=== PATIENT | male | born 1980 | race Caucasian/White ===

== ENCOUNTER 2019-01-08 08:13 | Inpatient (IN) | payer OTHER ==
[2019-01-08 08:50] VITALS: BMI 21.9
--- NOTE | 2019-01-08 09:14 | HP ---
COWS - Scale Resting Pulse: 0= [place] 80 or Below Sweatin= No chills or Flushing Restless Observation: 3= Extraneous Movement Pupil Size: 0= Normal to Room Light Bone or Joint Aches: 2= Severe Diffuse Aches Runny Nose/ Eye Tearin= Runny Nose/Eyes GI Upset > 30mins: 1= Stomach Cramp Tremor Observation: 0= None Yawning Observation: 1= 1-2x During Session Anxiety or Irritability: 2=Irritable/Anxious Goose Flesh Skin: 0=Smooth Skin COWS Score: 11 CIWA Score Nausea/Vomitin-No Nausea/No Vomiting Muscle Tremors: None Anxiety: 2 Agitation: 2 Paroxysmal Sweats: No Perspiration Orientation: 0-Oriented Tacttile Disturbances: 0-None Auditory Disturbances: 0-None Visual Disturbances: 2-Mild Sensitivity Headache: 2-Mild CIWA-Ar Total Score: 8 - Admission Criteria OASAS Guidelines: Admission for Medically Managed Detox: Requires at least one of the followin. CIWA greater than 12 2. Seizures within the past 24 hours 3. Delirium tremens within the past 24 hours 4. Hallucinations within the past 24 hours 5. Acute intervention needed for co occurring medical disorder 6. Acute intervention needed for co occurring psychiatric disorder 7. Severe withdrawal that cannot be handled at a lower level of care (continued vomiting, continued diarrhea, abnormal vital signs) requiring intravenous medication and/or fluids 8. Admitting History and Physical - Smoking History Smoking history: Current every day smoker Have you smoked in the past 12 months: Yes Aproximately how many cigarettes per day: 30 - Alcohol/Substance Use Hx Alcohol Use: No Admission ROS [facility] Allergies/Adverse Reactions: Allergies Allergy/AdvReac Type Severity Reaction Status Date / Time Fish Containing Products Allergy Unknown Hives Verified 01/08/19 08:44 [Fish Product Derivatives] No Known Drug Allergies Allergy Unknown Verified 01/08/19 08:44 History of Present Illness: 38 y.o. male here requesting detox from heroin and bezodiazepines , reports use of heroin since age 19 , current daily 10 bags/day ivdu , needles from the store, denies sharing , + re-using, denies abscess , denies OD ,has Narcan kit and knows how to use it . Latest use yesterday morning, current symptoms as above . states " I want to change my life " , detox 10-15 , most recently 6 mo ago @ [facility] , rehab - none, residential - [facility] on [facility] 2014 highest dose 90 mg . relapsed while in program and left . Longest sobriety 2 years [id number] w/ NA / AA and leaving the country , and [phone] w/ NA / AA , while in [facility] x 7 months sober . cocaine - occasional use ivdu , since age 19 benzodiazepine - since age 27 , 2 sticks of 2 mg 5-6 x/week , had w/d seizure 2 years ago illicit methadone use " recently" 30 mg fentanyl - denies knowingly using denies other illicits tobacco ; 1 ppd denies etoh Search Terms: gretta vidal, 1980 Search Date: 01/08/2019 09:05:26 AM This report was requested by: Debbie Nunez | Reference #: [id number] There are no results for the search terms that you entered pmhx : gerd pshx : denies psych : denies shx : homeless, unemployed, finances habit through odd jobs , denies legal issues , past drug-related charges . no children Exam Limitations: No Limitations - Ebola screening Have you traveled outside of the country in the last 21 days: No Have you had contact with anyone from an Ebola affected area: No Do you have a fever: No - Review of Systems Constitutional: Loss of Appetite EENT: reports: See HPI Respiratory: reports: No Symptoms reported Cardiac: reports: No Symptoms Reported GI: reports: See HPI : reports: No Symptoms Reported Musculoskeletal: reports: See HPI Integumentary: reports: See HPI Neuro: reports: See HPI, Headache Endocrine: reports: No Symptoms Reported Psychiatric: reports: Orientated x3, Agitated (denies SI / HI), Anxious Patient History - Patient Medical History Hx Anemia: No Hx Asthma: No Hx Chronic Obstructive Pulmonary Disease (COPD): No Hx Cancer: No Hx Cardiac Disorders: No Hx Congestive Heart Failure: No Hx Hypertension: No Hx Hypercholesterolemia: No Hx Pacemaker: No HX Cerebrovascular Accident: No Hx Seizures: No Hx Dementia: No Hx Diabetes: No Hx Gastrointestinal Disorders: Yes (gerd) Hx Liver Disease: No Hx Genitourinary Disorders: No Hx Sexually Transmitted Disorders: No Hx Renal Disease (ESRD): No Hx Thyroid Disease: No Hx Human Immunodeficiency Virus (HIV): No Hx Hepatitis C: Yes (since 2003) Hx Depression: Yes (anxiety) Hx Suicide Attempt: No Hx Bipolar Disorder: No Hx Schizophrenia: No - Patient Surgical History Past Surgical History: No Hx Neurologic Surgery: No Hx Cataract Extraction: No Hx Cardiac Surgery: No Hx Lung Surgery: No Hx Breast Surgery: No Hx Breast Biopsy: No Hx Abdominal Surgery: No Hx Appendectomy: No Hx Cholecystectomy: No Hx Genitourinary Surgery: No Hx Section: No Hx Orthopedic Surgery: No Anesthesia Reaction: No - PPD History Date: 09/30/14 Results: 0 mm - Smoking Cessation Smoking history: Current every day smoker Have you smoked in the past 12 months: Yes Aproximately how many cigarettes per day: 30 Cigars Per Day: 0 Hx Chewing Tobacco Use: No Initiated information on smoking cessation: No - Substances abused Alprazolam (Xanax) Substance route: Oral Frequency: 3-6 times per week Amount used: 2 sticks Age of first use: 28 Date of last use: 01/07/19 Heroin Substance route: Injection Frequency: Daily Amount used: 10 bags Age of first use: 19 Date of last use: 01/07/19 Admission Physical Exam BHS - Vital Signs Vital Signs: Vital Signs - 24 hr 01/08/19 01/08/19 08:42 09:00 Temperature 97.4 F L 97.4 F L Pulse Rate 47 L 47 L Respiratory 18 18 Rate Blood Pressure 108/73 108/73 - Physical General Appearance: Yes: Mild Distress, Anxious HEENTM: Yes: EOMI, Hearing grossly Normal, Normocephalic, Normal Voice Respiratory: Yes: Chest Non-Tender, Lungs Clear, Normal Breath Sounds, No Respiratory Distress, No Accessory Muscle Use Neck: Yes: No masses,lesions,Nodules, Trachea in good position Cardiology: Yes: Regular Rhythm, Regular Rate, S1, S2 Abdominal: Yes: Non Tender, Soft Back: Yes: Normal Inspection Musculoskeletal: Yes: full range of Motion, Gait Steady Extremities: Yes: Normal Range of Motion, Non-Tender Neurological: Yes: Alert, Motor Strength 5/5, Normal Mood/Affect Integumentary: Yes: Warm, Track Gomez (rachel antecubital) - Diagnostic (1) Opioid dependence Current Visit: Yes Status: Chronic (2) Nicotine dependence Current Visit: Yes Status: Chronic (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
[2019-01-08] MEDS ORDERED: ACETAMINOPHEN 325 MG TABLET (FP) PO PRN ×2 (09:22)
[2019-01-08] MEDS ORDERED: MENTHOL/PHENOL 1 EACH UD MM PRN (09:22)
[2019-01-08] MEDS ORDERED: IBUPROFEN 400 MG TABLET (FP) PO PRN (09:22)
[2019-01-08] MEDS ORDERED: METHOCARBAMOL 500 MG TABLET PO PRN (09:22)
[2019-01-08] MEDS ORDERED: MAGNESIUM CITRATE 300 ML BOTTLE PO PRN (09:22)
[2019-01-08] MEDS ORDERED: BISMUTH SUBSALICYLATE 524 MG/30 ML UD PO PRN (09:22)
[2019-01-08] MEDS ORDERED: MAG HYDROX/AL HYDROX/SIMETH 30 ML UNIT-DOSE CUP PO PRN (09:22)
[2019-01-08] MEDS ORDERED: MAGNESIUM HYDROX 2400MG/30ML ORAL SUSPENSION 30 ML CUP PO PRN (09:22)
[2019-01-08] MEDS ORDERED: cloNIDine HCL 0.1 MG TABLET PO PRN (09:23)
[2019-01-08] MEDS ORDERED: METHADONE HCL 10 MG TABLET (FOR DETOX USE ONLY) PO ONE (09:23)
[2019-01-08] MEDS: PANTOPRAZOLE 40 MG TABLET (FP) PO SCH (10:38)
[2019-01-08] MEDS: PRENATAL VITAMINS W/ FOLIC ACID TABLET (FP) PO SCH (10:38)
[2019-01-08] MEDS: diazePAM 5 MG TABLET PO PRN ×2 (10:40→17:08)
[2019-01-08] MEDS ORDERED: NICOTINE POLACRILEX 4 MG GUM BUC PRN (13:46)
[2019-01-08] MEDS: diazePAM 5 MG TABLET PO SCH ×2 (13:56→22:30)
[2019-01-08] MEDS: NICOTINE 21 MG/24 HOURS TOPICAL PATCH TD SCH (14:23)
[2019-01-08] MEDS: hydrOXYzine PAMOATE 25 MG CAPSULE (FP) PO PRN (15:47)
[2019-01-08] MEDS: THIAMINE HCL 100 MG TABLET (FP) PO SCH (22:30)
[2019-01-08] MEDS: MELATONIN 5 MG TABLETS PO PRN (22:30)
[2019-01-09] MEDS: diazePAM 5 MG TABLET PO SCH ×3 (05:20→22:10)
[2019-01-09] MEDS ORDERED: METHADONE HCL 10 MG TABLET (FOR DETOX USE ONLY) ONE (08:51)
[2019-01-09] MEDS ORDERED: METHADONE HCL 5 MG TABLET (FOR DETOX USE ONLY) ONE (08:51)
[2019-01-09] MEDS ORDERED: METHADONE (DETOX) 20 MG, METHADONE (DETOX) 5 MG PO ONE (10:00)
[2019-01-09] MEDS: PANTOPRAZOLE 40 MG TABLET (FP) PO SCH (10:12)
[2019-01-09] MEDS: diazePAM 5 MG TABLET PO PRN ×2 (10:13→17:48)
[2019-01-09] MEDS: NICOTINE 21 MG/24 HOURS TOPICAL PATCH TD SCH (10:13)
[2019-01-09] MEDS: PRENATAL VITAMINS W/ FOLIC ACID TABLET (FP) PO SCH (10:13)
[2019-01-09 10:14] LABS: HEMATOCRIT 38.7 % (35.4-49); HEMOGLOBIN 12.8 GM/dL (11.7-16.9); MCH 28.5 pg (25.7-33.7); MEAN CELL VOLUME 86.3 fl (80-96); MEAN PLT VOLUME 8.8 fl (7.5-11.1); PLATELET COUNT 275 K/MM3 (134-434); RBC 4.49 M/mm3 (4.00-5.60); RDW 16.8 % (11.9-15.9); WHITE BLOOD COUNT 6.5 K/mm3 (4.0-10.0)
[2019-01-09 10:28] LABS: ALBUMIN 3.5 g/dl (3.4-5.0); BILIRUBIN,TOTAL 0.5 mg/dL (0.2-1); BLOOD UREA NITROGEN 28.8 mg/dL (7-18); CALCIUM 8.9 mg/dL (8.5-10.1); CREATININE 0.9 mg/dL (0.55-1.3); POTASSIUM 4.3 mmol/L (3.5-5.1); TOT PROT 7.2 g/dl (6.4-8.2)
--- NOTE | 2019-01-09 17:37 | PN ---
S CIWA - CIWA Score Nausea/Vomitin-No Nausea/No Vomiting Muscle Tremors: 3 Anxiety: 3 Agitation: 3 Paroxysmal Sweats: No Perspiration Orientation: 0-Oriented Tacttile Disturbances: 0-None Auditory Disturbances: 0-None Visual Disturbances: 2-Mild Sensitivity Headache: 2-Mild CIWA-Ar Total Score: 13 BHS COWS - Scale Resting Pulse: 0= [place] 80 or Below Sweatin= No chills or Flushing Restless Observation: 1= Difficult to Sit Still Pupil Size: 0= Normal to Room Light Bone or Joint Aches: 2= Severe Diffuse Aches Runny Nose/ Eye Tearin= None GI Upset > 30mins: 0= None Tremor Observation of Outstretched Hands: 2= Slight Tremor Visible Yawning Observation: 1= 1-2x During Session Anxiety or Irritability: 2=Irritable/Anxious Goose Flesh Skin: 3=Piloerection COWS Score: 11 BHS Progress Note (SOAP) Subjective: Anxious, Tremors, Body Aches. Objective: PATIENT A & O X 3, OBSERVED AMBULATING ON DETOX UNIT UNASSISTED. IN NO ACUTE DISTRESS. 01/09/19 17:38 Vital Signs Temperature 96.8 F L 01/09/19 13:47 Pulse Rate 79 01/09/19 13:47 Respiratory Rate 18 01/09/19 13:47 Blood Pressure 103/67 01/09/19 13:47 O2 Sat by Pulse Oximetry (%) Laboratory Tests 01/09/19 01/09/19 01/09/19 08:00 08:00 08:00 WBC 6.5 RBC 4.49 Hgb 12.8 Hct 38.7 MCV 86.3 MCH 28.5 MCHC 33.0 RDW 16.8 H Plt Count 275 D MPV 8.8 D Sodium 140 Potassium 4.3 Chloride 104 Carbon Dioxide 31 Anion Gap 5 L BUN 28.8 H Creatinine 0.9 Est GFR (CKD-EPI)AfAm 126.90 Est GFR (CKD-EPI)NonAf 109.49 Random Glucose 99 Calcium 8.9 Total Bilirubin 0.5 AST 41 H ALT 69 H Alkaline Phosphatase 105 Total Protein 7.2 Albumin 3.5 RPR Titer Nonreactive LABS NOTED. PATIENT HAS HAD ELEVATED AST AND ALT LEVELS ON PREVIOUS ADMISSIONS 01/09/19 17:38 Assessment: 01/09/19 17:39 WITHDRAWAL SYMPTOMS. ELEVATED ALT LEVEL. ELEVATED AST LEVEL. Plan: CONTINUE DETOX. INCREASE DAILY PO WATER INTAKE.
[2019-01-09] MEDS: hydrOXYzine PAMOATE 25 MG CAPSULE (FP) PO PRN (22:10)
[2019-01-09] MEDS: THIAMINE HCL 100 MG TABLET (FP) PO SCH (22:10)
[2019-01-10] MEDS: diazePAM 5 MG TABLET PO SCH ×2 (05:59→17:44)
[2019-01-10] MEDS ORDERED: METHADONE HCL 10 MG TABLET (FOR DETOX USE ONLY) PO ONE (10:00)
[2019-01-10] MEDS: PRENATAL VITAMINS W/ FOLIC ACID TABLET (FP) PO SCH (10:35)
[2019-01-10] MEDS: PANTOPRAZOLE 40 MG TABLET (FP) PO SCH (10:35)
[2019-01-10] MEDS: NICOTINE 21 MG/24 HOURS TOPICAL PATCH TD SCH (10:35)
--- NOTE | 2019-01-10 12:36 | PN ---
S CIWA - CIWA Score Nausea/Vomitin-No Nausea/No Vomiting Muscle Tremors: 2 Anxiety: 3 Agitation: 1-Slight > Activity Paroxysmal Sweats: 3 Orientation: 0-Oriented Tacttile Disturbances: 0-None Auditory Disturbances: 0-None Visual Disturbances: 0-None Headache: 1-Very Mild CIWA-Ar Total Score: 10 S COWS - Scale Resting Pulse: 0= [place] 80 or Below Sweatin= Beads of Sweat on Face Restless Observation: 1= Difficult to Sit Still Pupil Size: 0= Normal to Room Light Bone or Joint Aches: 0= None Runny Nose/ Eye Tearin= None GI Upset > 30mins: 0= None Tremor Observation of Outstretched Hands: 2= Slight Tremor Visible Yawning Observation: 1= 1-2x During Session Anxiety or Irritability: 2=Irritable/Anxious Goose Flesh Skin: 0=Smooth Skin COWS Score: 9 S Progress Note (SOAP) Subjective: c/o sweats, anxiety, headache, irritability, and shakes. Objective: 01/10/19 12:37 Vital Signs 01/10/19 01/10/19 07:00 09:30 Temperature 96.8 F L 97.0 F L Pulse Rate 63 77 Respiratory 18 16 Rate Blood Pressure 100/61 96/61 Lab Results WBC 6.5 K/mm3 (4.0-10.0) 01/09/19 08:00 RBC 4.49 M/mm3 (4.00-5.60) 01/09/19 08:00 Hgb 12.8 GM/dL (11.7-16.9) 01/09/19 08:00 Hct 38.7 % (35.4-49) 01/09/19 08:00 MCV 86.3 fl (80-96) 01/09/19 08:00 MCHC 33.0 g/dl (32.0-35.9) 01/09/19 08:00 RDW 16.8 % (11.9-15.9) H 01/09/19 08:00 Plt Count 275 K/MM3 (134-434) D 01/09/19 08:00 Sodium 140 mmol/L (136-145) 01/09/19 08:00 Potassium 4.3 mmol/L (3.5-5.1) 01/09/19 08:00 Chloride 104 mmol/L (98-107) 01/09/19 08:00 Carbon Dioxide 31 mmol/L (21-32) 01/09/19 08:00 Anion Gap 5 MMOL/L (8-16) L 01/09/19 08:00 BUN 28.8 mg/dL (7-18) H 01/09/19 08:00 Creatinine 0.9 mg/dL (0.55-1.3) 01/09/19 08:00 Random Glucose 99 mg/dL (74-106) 01/09/19 08:00 Calcium 8.9 mg/dL (8.5-10.1) 01/09/19 08:00 Labs noted. Assessment: 01/10/19 12:37 AOX3, in no acute respiratory distress. Full ROM, ambulating in the unit. Withdrawal symptoms. Plan: continue detox.
[2019-01-10] MEDS: diazePAM 5 MG TABLET PO PRN (21:44)
[2019-01-10] MEDS: THIAMINE HCL 100 MG TABLET (FP) PO SCH (21:45)
[2019-01-11] MEDS ORDERED: diazePAM 5 MG TABLET PO ONE (06:00)
[2019-01-11] MEDS: diazePAM 5 MG TABLET PO PRN (07:02)
[2019-01-11] MEDS ORDERED: METHADONE HCL 10 MG TABLET (FOR DETOX USE ONLY) ONE (09:35)
[2019-01-11] MEDS ORDERED: METHADONE HCL 5 MG TABLET (FOR DETOX USE ONLY) ONE (09:35)
[2019-01-11] MEDS ORDERED: METHADONE (DETOX) 10 MG, METHADONE (DETOX) 5 MG PO ONE (10:00)
[2019-01-11] MEDS: PRENATAL VITAMINS W/ FOLIC ACID TABLET (FP) PO SCH (10:20)
[2019-01-11] MEDS: PANTOPRAZOLE 40 MG TABLET (FP) PO SCH (10:20)
[2019-01-11] MEDS: NICOTINE 21 MG/24 HOURS TOPICAL PATCH TD SCH (10:21)
--- NOTE | 2019-01-11 11:14 | PN ---
[facility] CIWA - CIWA Score Nausea/Vomitin-No Nausea/No Vomiting Muscle Tremors: None Anxiety: 3 Agitation: 1-Slight > Activity Paroxysmal Sweats: 3 Orientation: 0-Oriented Tacttile Disturbances: 0-None Auditory Disturbances: 0-None Visual Disturbances: 0-None Headache: 1-Very Mild CIWA-Ar Total Score: 8 BHS COWS - Scale Resting Pulse: 0= [place] 80 or Below Sweatin= Chills/Flushing Restless Observation: 1= Difficult to Sit Still Pupil Size: 0= Normal to Room Light Bone or Joint Aches: 2= Severe Diffuse Aches Runny Nose/ Eye Tearin= None GI Upset > 30mins: 0= None Tremor Observation of Outstretched Hands: 0= None Yawning Observation: 1= 1-2x During Session Anxiety or Irritability: 2=Irritable/Anxious Goose Flesh Skin: 0=Smooth Skin COWS Score: 7 S Progress Note (SOAP) Subjective: c/o anxiety, irritability, muscle aches, and sweats. Objective: 01/11/19 11:13 Vital Signs 01/11/19 01/11/19 01/11/19 03:30 06:32 09:48 Temperature 96.9 F L 97.6 F Pulse Rate 60 69 Respiratory 18 18 16 Rate Blood Pressure 97/59 L 102/63 Lab Results WBC 6.5 K/mm3 (4.0-10.0) 01/09/19 08:00 RBC 4.49 M/mm3 (4.00-5.60) 01/09/19 08:00 Hgb 12.8 GM/dL (11.7-16.9) 01/09/19 08:00 Hct 38.7 % (35.4-49) 01/09/19 08:00 MCV 86.3 fl (80-96) 01/09/19 08:00 MCHC 33.0 g/dl (32.0-35.9) 01/09/19 08:00 RDW 16.8 % (11.9-15.9) H 01/09/19 08:00 Plt Count 275 K/MM3 (134-434) D 01/09/19 08:00 Sodium 140 mmol/L (136-145) 01/09/19 08:00 Potassium 4.3 mmol/L (3.5-5.1) 01/09/19 08:00 Chloride 104 mmol/L (98-107) 01/09/19 08:00 Carbon Dioxide 31 mmol/L (21-32) 01/09/19 08:00 Anion Gap 5 MMOL/L (8-16) L 01/09/19 08:00 BUN 28.8 mg/dL (7-18) H 01/09/19 08:00 Creatinine 0.9 mg/dL (0.55-1.3) 01/09/19 08:00 Random Glucose 99 mg/dL (74-106) 01/09/19 08:00 Calcium 8.9 mg/dL (8.5-10.1) 01/09/19 08:00 Labs noted. Assessment: 01/11/19 11:14 AOX3, in no respiratory distress. Full ROM, ambulating in the unit. Withdrawal symptoms. Plan: continue detox.
[2019-01-11] MEDS: THIAMINE HCL 100 MG TABLET (FP) PO SCH (21:46)
[2019-01-11] MEDS: MELATONIN 5 MG TABLETS PO PRN (21:47)
[2019-01-12] MEDS ORDERED: METHADONE HCL 10 MG TABLET (FOR DETOX USE ONLY) PO ONE (10:00)
[2019-01-12] MEDS: NICOTINE 21 MG/24 HOURS TOPICAL PATCH TD SCH (10:15)
[2019-01-12] MEDS: PRENATAL VITAMINS W/ FOLIC ACID TABLET (FP) PO SCH (10:15)
[2019-01-12] MEDS: PANTOPRAZOLE 40 MG TABLET (FP) PO SCH (10:15)
--- NOTE | 2019-01-12 18:54 | PN ---
[facility] CIWA - CIWA Score Nausea/Vomitin-No Nausea/No Vomiting Muscle Tremors: None Anxiety: 2 Agitation: 0-Normal Activity Paroxysmal Sweats: No Perspiration Orientation: 0-Oriented Tacttile Disturbances: 0-None Auditory Disturbances: 0-None Visual Disturbances: 2-Mild Sensitivity Headache: 0-None Present CIWA-Ar Total Score: 4 S COWS - Scale Resting Pulse: 0= [place] 80 or Below Sweatin= No chills or Flushing Restless Observation: 0= Sits Still Pupil Size: 0= Normal to Room Light Bone or Joint Aches: 0= None Runny Nose/ Eye Tearin= None GI Upset > 30mins: 0= None Tremor Observation of Outstretched Hands: 0= None Yawning Observation: 1= 1-2x During Session Anxiety or Irritability: 2=Irritable/Anxious Goose Flesh Skin: 0=Smooth Skin COWS Score: 3 S Progress Note (SOAP) Subjective: Fatigue, Anxious. Objective: PATIENT A & O X 3. IN NO ACUTE DISTRESS. 01/12/19 18:51 Vital Signs Temperature 98.8 F 01/12/19 17:08 Pulse Rate 77 01/12/19 17:08 Respiratory Rate 19 01/12/19 17:08 Blood Pressure 97/58 L 01/12/19 17:08 O2 Sat by Pulse Oximetry (%) Laboratory Tests 01/09/19 01/09/19 01/09/19 08:00 08:00 08:00 WBC 6.5 RBC 4.49 Hgb 12.8 Hct 38.7 MCV 86.3 MCH 28.5 MCHC 33.0 RDW 16.8 H Plt Count 275 D MPV 8.8 D Sodium 140 Potassium 4.3 Chloride 104 Carbon Dioxide 31 Anion Gap 5 L BUN 28.8 H Creatinine 0.9 Est GFR (CKD-EPI)AfAm 126.90 Est GFR (CKD-EPI)NonAf 109.49 Random Glucose 99 Calcium 8.9 Total Bilirubin 0.5 AST 41 H ALT 69 H Alkaline Phosphatase 105 Total Protein 7.2 Albumin 3.5 RPR Titer Nonreactive LABS NOTED. Assessment: 01/12/19 18:52 WITHDRAWAL SYMPTOMS. ELEVATED AST LEVEL. ELEVATED ALT LEVEL. AZOTEMIA. 01/12/19 18:52 Plan: CONTINUE DETOX. PATIENT SCHEDULED FOR DISCHARGE FROM DETOX UNIT TOMORROW.
[2019-01-12] MEDS: THIAMINE HCL 100 MG TABLET (FP) PO SCH (22:02)
[2019-01-12] MEDS: MELATONIN 5 MG TABLETS PO PRN (22:02)
[2019-01-13] MEDS ORDERED: METHADONE HCL 5 MG TABLET (FOR DETOX USE ONLY) PO ONE (06:00)
--- NOTE | 2019-01-13 09:06 | DS ---
[facility] Detox Discharge Summary Admission Date: 01/08/19 Discharge Date: 01/13/19 - History Present History: Opioid Dependence, Sedative Dependence - Physical Exam Results Vital Signs: Vital Signs Temperature 96.9 F L 01/13/19 06:15 Pulse Rate 58 L 01/13/19 06:15 Respiratory Rate 16 01/13/19 06:15 Blood Pressure 103/70 01/13/19 06:15 O2 Sat by Pulse Oximetry (%) - Treatment Hospital Course: Detox Protocol Followed, Detoxed Safely, Responded well, Discharged Condition Good, Rehab Referral Accepted Patient has Accepted a Rehab Referral to: [facility] - Medication Discharge Medications: Ambulatory Orders Lansoprazole [Prevacid] 30 mg PO DAILY 09/15/13 - Diagnosis (1) Nicotine dependence Current Visit: Yes Status: Chronic (2) Opioid dependence Current Visit: Yes Status: Chronic (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
[2019-01-13 09:17] VITALS: BP 111/79; PULSE 70; TEMP 97.3
== END 2019-01-13 09:45 | disposition other institution (70) | DRG 773 ==
LOC: YASAS 08:13 → Y3N 09:31
PROVIDERS: ADMIT Allergy & Immunology; ATTEND Allergy & Immunology
PROC: HZ2ZZZZ Detoxification Services for Substance Abuse Treatment (ICD-10-PCS; principal; 2019-01-08)
DX: F11.23 Opioid dependence with withdrawal (principal); F13.230 Sedative, hypnotic or anxiolytic dependence with withdrawal, uncomplicated; F14.20 Cocaine dependence, uncomplicated; F17.210 Nicotine dependence, cigarettes, uncomplicated; F41.8 Other specified anxiety disorders; F32.9 Major depressive disorder, single episode, unspecified; K21.9 Gastro-esophageal reflux disease without esophagitis; B18.2 Chronic viral hepatitis C; R94.5 Abnormal results of liver function studies; Z91.013 Allergy to seafood; Z59.0 Homelessness
CPT/HCPCS: 36415; 80053; 85027; 86593

== ENCOUNTER 2019-02-18 13:04 | Inpatient (IN) | payer OTHER ==
[2019-02-18 13:58] VITALS: BMI 22.7
--- NOTE | 2019-02-18 15:12 | HP ---
COWS - Scale Resting Pulse: 2= [place] 101-120 Sweatin= Chills/Flushing Restless Observation: 3= Extraneous Movement Pupil Size: 1= Pupils >than Normal Bone or Joint Aches: 2= Severe Diffuse Aches Runny Nose/ Eye Tearin= Runny Nose/Eyes GI Upset > 30mins: 2= Nausea/Diarrhea Tremor Observation: 1= Tremor [place], Not Seen Yawning Observation: 1= 1-2x During Session Anxiety or Irritability: 1=Feels Anxious/Irritable Goose Flesh Skin: 0=Smooth Skin COWS Score: 16 CIWA Score - Admission Criteria OASAS Guidelines: Admission for Medically Managed Detox: Requires at least one of the followin. CIWA greater than 12 2. Seizures within the past 24 hours 3. Delirium tremens within the past 24 hours 4. Hallucinations within the past 24 hours 5. Acute intervention needed for co occurring medical disorder 6. Acute intervention needed for co occurring psychiatric disorder 7. Severe withdrawal that cannot be handled at a lower level of care (continued vomiting, continued diarrhea, abnormal vital signs) requiring intravenous medication and/or fluids 8. Admitting History and Physical - Smoking History Smoking history: Current every day smoker Have you smoked in the past 12 months: Yes Aproximately how many cigarettes per day: 30 - Alcohol/Substance Use Hx Alcohol Use: No Admission ROS [facility] - HPI Chief Complaint: heroin detox Allergies/Adverse Reactions: Allergies Allergy/AdvReac Type Severity Reaction Status Date / Time Fish Containing Products Allergy Unknown Hives Verified 02/18/19 13:53 [Fish Product Derivatives] No Known Drug Allergies Allergy Unknown Verified 02/18/19 13:53 History of Present Illness: 38 yo with HCV pos, long h/o OUD, was last here about a month ago, 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 Homeless. Family is in [place]. Would like to go to half-way rehab. Has no PCP- has not had care for HCV. Was in a methadone program stopped going about 5 years. Did not want to stay on Methadone assisted. heroin: IV, 1-2 bundles/day, no h/o overdose, has a Narcan kit- [id number] a week Utox: Fen, MTD, Bar, BZO DUR- no controlled substances - Ebola screening Have you traveled outside of the country in the last 21 days: No Have you had contact with anyone from an Ebola affected area: No Do you have a fever: No - Review of Systems Constitutional: No Symptoms Reported EENT: reports: No Symptoms Reported Respiratory: reports: No Symptoms reported Cardiac: reports: No Symptoms Reported GI: reports: No Symptoms Reported : reports: No Symptoms Reported Musculoskeletal: reports: No Symptoms Reported Integumentary: reports: No Symptoms Reported Neuro: reports: No Symptoms reported Endocrine: reports: No Symptoms Reported Hematology: reports: No Symptoms Reported Psychiatric: reports: No Sypmtoms Reported Other Systems: Reviewed and Negative Patient History - Patient Medical History Hx Anemia: No Hx Asthma: No Hx Chronic Obstructive Pulmonary Disease (COPD): No Hx Cancer: No Hx Cardiac Disorders: No Hx Congestive Heart Failure: No Hx Hypertension: No Hx Hypercholesterolemia: No Hx Pacemaker: No HX Cerebrovascular Accident: No Hx Seizures: No Hx Dementia: No Hx Diabetes: No Hx Gastrointestinal Disorders: Yes (gerd) Hx Liver Disease: No Hx Genitourinary Disorders: No Hx Sexually Transmitted Disorders: No Hx Renal Disease (ESRD): No Hx Thyroid Disease: No Hx Human Immunodeficiency Virus (HIV): No Hx Hepatitis C: Yes (since 2003) Hx Depression: Yes (anxiety) Hx Suicide Attempt: No Hx Bipolar Disorder: No Hx Schizophrenia: No - Patient Surgical History Past Surgical History: No Hx Neurologic Surgery: No Hx Cataract Extraction: No Hx Cardiac Surgery: No Hx Lung Surgery: No Hx Breast Surgery: No Hx Breast Biopsy: No Hx Abdominal Surgery: No Hx Appendectomy: No Hx Cholecystectomy: No Hx Genitourinary Surgery: No Hx Section: No Hx Orthopedic Surgery: No Anesthesia Reaction: No - PPD History Date: 09/30/14 Results: 0 mm - Smoking Cessation Smoking history: Current every day smoker Have you smoked in the past 12 months: Yes Aproximately how many cigarettes per day: 30 Cigars Per Day: 0 Hx Chewing Tobacco Use: No Initiated information on smoking cessation: Yes 'Breaking Loose' booklet given: 02/18/19 - Substance & Tx. History Hx Alcohol Use: Yes Hx Substance Use: Yes Substance Use Type: Heroin, Tranquilizers Hx Substance Use Treatment: Yes - Substances abused Alprazolam (Xanax) Substance route: Oral Frequency: 3-6 times per week Amount used: 2 sticks Age of first use: 28 Date of last use: 01/07/19 Heroin Substance route: Injection Frequency: Daily Amount used: 10-15bags Age of first use: 19 Date of last use: 02/17/19 Alcohol Substance route: Oral Frequency: Daily Amount used: 2 PINTS OF VODKA Age of first use: 13 Date of last use: 02/17/19 Admission Physical Exam BHS - Vital Signs Vital Signs: Vital Signs - 24 hr 02/18/19 13:55 Temperature 97.7 F Pulse Rate 73 Respiratory 16 Rate Blood Pressure 124/64 - Physical General Appearance: Yes: Within Normal Limits HEENTM: Yes: Within Normal Limits Respiratory: Yes: Within Normal Limits, Lungs Clear Neck: Yes: Within Normal Limits Cardiology: Yes: Within Normal Limits, Regular Rhythm Abdominal: Yes: Within Normal Limits Back: Yes: Within Normal Limits Musculoskeletal: Yes: Within Normal Limits Extremities: Yes: Within Normal Limits Neurological: Yes: Within Normal Limits Integumentary: Yes: Within Normal Limits, Track Gomez Lymphatic: Yes: Within Normal Limits - Diagnostic (1) Opioid use disorder Current Visit: Yes Status: Acute Breathalyzer - Breathalyzer Breathalyzer: 0 Urine Drug Screen - Test Device Lot number: [id number] Expiration date: 10/29/20 - Control Is test valid?: Yes - Results Drug screen NEGATIVE: No Urine drug screen results: FEN-Fentanyl, MTD-Methadone, BAR-Barbiturates, BZO- Benzodiazepines Inpatient Rehab Admission - Rehab Decision to Admit Inpatient rehab admission?: No
[2019-02-18] MEDS ORDERED: ACETAMINOPHEN 325 MG TABLET (FP) PO PRN ×2 (15:18)
[2019-02-18] MEDS ORDERED: MAGNESIUM HYDROX 2400MG/30ML ORAL SUSPENSION 30 ML CUP PO PRN (15:18)
[2019-02-18] MEDS ORDERED: NICOTINE POLACRILEX 2 MG GUM BUC PRN (15:18)
[2019-02-18] MEDS ORDERED: BISMUTH SUBSALICYLATE 524 MG/30 ML UD PO PRN (15:18)
[2019-02-18] MEDS ORDERED: MAGNESIUM CITRATE 300 ML BOTTLE PO PRN (15:18)
[2019-02-18] MEDS ORDERED: NALOXONE HCL 0.4 MG/ML VIAL IM PRN (15:18)
[2019-02-18] MEDS ORDERED: METHADONE HCL 10 MG TABLET (FOR DETOX USE ONLY) PO ONE (15:18)
[2019-02-18] MEDS ORDERED: cloNIDine HCL 0.1 MG TABLET PO PRN (15:18)
[2019-02-18] MEDS ORDERED: MAG HYDROX/AL HYDROX/SIMETH 30 ML UNIT-DOSE CUP PO PRN (15:18)
[2019-02-18] MEDS ORDERED: MENTHOL/PHENOL 1 EACH UD MM PRN (15:18)
[2019-02-18] MEDS ORDERED: IBUPROFEN 400 MG TABLET (FP) PO PRN (15:18)
[2019-02-18] MEDS: clonazePAM 0.5 MG TABLET PO PRN ×2 (17:48→23:06)
[2019-02-18] MEDS: METHOCARBAMOL 500 MG TABLET PO PRN (19:34)
[2019-02-18] MEDS: hydrOXYzine PAMOATE 25 MG CAPSULE (FP) PO PRN (19:34)
[2019-02-18] MEDS: traZODone HCL 50 MG TABLET (FP) PO SCH (22:04)
[2019-02-18] MEDS: THIAMINE HCL 100 MG TABLET (FP) PO SCH (22:04)
[2019-02-18] MEDS: MELATONIN 5 MG TABLETS PO PRN (22:04)
[2019-02-19 09:37] LABS: HEMATOCRIT 37.7 % (35.4-49); HEMOGLOBIN 12.4 GM/dL (11.7-16.9); MCH 28.8 pg (25.7-33.7); MCHC 32.9 g/dl (32.0-35.9); MEAN CELL VOLUME 87.6 fl (80-96); MEAN PLT VOLUME 8.7 fl (7.5-11.1); PLATELET COUNT 274 K/MM3 (134-434); RBC 4.31 M/mm3 (4.00-5.60); RDW 16.1 % (11.9-15.9); WHITE BLOOD COUNT 9.1 K/mm3 (4.0-10.0)
[2019-02-19] MEDS ORDERED: METHADONE HCL 10 MG TABLET (FOR DETOX USE ONLY) ONE (09:42)
[2019-02-19] MEDS ORDERED: METHADONE HCL 5 MG TABLET (FOR DETOX USE ONLY) ONE (09:42)
[2019-02-19 09:50] LABS: ALBUMIN 3.1 g/dl (3.4-5.0); BILIRUBIN,TOTAL 0.4 mg/dL (0.2-1); BLOOD UREA NITROGEN 25.6 mg/dL (7-18); CALCIUM 8.4 mg/dL (8.5-10.1); CREATININE 0.8 mg/dL (0.55-1.3); TOT PROT 6.8 g/dl (6.4-8.2)
[2019-02-19] MEDS ORDERED: METHADONE (DETOX) 20 MG, METHADONE (DETOX) 5 MG PO ONE (10:00)
[2019-02-19] MEDS: clonazePAM 0.5 MG TABLET PO PRN ×2 (10:42→18:20)
[2019-02-19] MEDS: NICOTINE 21 MG/24 HOURS TOPICAL PATCH TD SCH (10:42)
[2019-02-19] MEDS: PRENATAL VITAMINS W/ FOLIC ACID TABLET (FP) PO SCH (10:42)
--- NOTE | 2019-02-19 14:12 | PN ---
BHS COWS - Scale Resting Pulse: 0= [place] 80 or Below Sweatin= Chills/Flushing Restless Observation: 0= Sits Still Pupil Size: 1= Pupils >than Normal Bone or Joint Aches: 1= Mild Discomfort Runny Nose/ Eye Tearin= Nasal Congestion GI Upset > 30mins: 1= Stomach Cramp Tremor Observation of Outstretched Hands: 2= Slight Tremor Visible Yawning Observation: 1= 1-2x During Session Anxiety or Irritability: 2=Irritable/Anxious Goose Flesh Skin: 3=Piloerection COWS Score: 13 BHS Progress Note (SOAP) Subjective: 38 years old male admitted on 02/18/19 for opiate withdrawal sx management treated with methadone detox regimen ate breakfast feeling tired prefers to stay in bed today limited conversation with staff Objective: 02/19/19 14:14 Vital Signs Temperature 96.7 F L 02/19/19 13:12 Pulse Rate 77 02/19/19 13:12 Respiratory Rate 18 02/19/19 13:12 Blood Pressure 99/63 02/19/19 13:12 O2 Sat by Pulse Oximetry (%) Laboratory Last Values WBC 9.1 K/mm3 (4.0-10.0) 02/19/19 08:00 RBC 4.31 M/mm3 (4.00-5.60) 02/19/19 08:00 Hgb 12.4 GM/dL (11.7-16.9) 02/19/19 08:00 Hct 37.7 % (35.4-49) 02/19/19 08:00 MCV 87.6 fl (80-96) 02/19/19 08:00 MCH 28.8 pg (25.7-33.7) 02/19/19 08:00 MCHC 32.9 g/dl (32.0-35.9) 02/19/19 08:00 RDW 16.1 % (11.9-15.9) H 02/19/19 08:00 Plt Count 274 K/MM3 (134-434) 02/19/19 08:00 MPV 8.7 fl (7.5-11.1) 02/19/19 08:00 Sodium 137 mmol/L (136-145) 02/19/19 08:00 Potassium 4.0 mmol/L (3.5-5.1) 02/19/19 08:00 Chloride 100 mmol/L (98-107) 02/19/19 08:00 Carbon Dioxide 32 mmol/L (21-32) 02/19/19 08:00 Anion Gap 5 MMOL/L (8-16) L 02/19/19 08:00 BUN 25.6 mg/dL (7-18) H 02/19/19 08:00 Creatinine 0.8 mg/dL (0.55-1.3) 02/19/19 08:00 Est GFR (CKD-EPI)AfAm 133.20 02/19/19 08:00 Est GFR (CKD-EPI)NonAf 114.93 02/19/19 08:00 Random Glucose 84 mg/dL (74-106) 02/19/19 08:00 Calcium 8.4 mg/dL (8.5-10.1) L 02/19/19 08:00 Total Bilirubin 0.4 mg/dL (0.2-1) 02/19/19 08:00 AST 45 U/L (15-37) H 02/19/19 08:00 ALT 72 U/L (13-61) H 02/19/19 08:00 Alkaline Phosphatase 94 U/L (45-117) 02/19/19 08:00 Total Protein 6.8 g/dl (6.4-8.2) 02/19/19 08:00 Albumin 3.1 g/dl (3.4-5.0) L 02/19/19 08:00 RPR Titer Nonreactive (NONREACTIVE) 02/19/19 08:00 lab noted Assessment: 02/19/19 14:15 opiate withdrawal sx Plan: continue methadone detox regimen
[2019-02-19] MEDS: traZODone HCL 50 MG TABLET (FP) PO SCH (22:13)
[2019-02-19] MEDS: MELATONIN 5 MG TABLETS PO PRN (22:13)
[2019-02-19] MEDS: THIAMINE HCL 100 MG TABLET (FP) PO SCH (22:13)
[2019-02-20] MEDS ORDERED: METHADONE HCL 10 MG TABLET (FOR DETOX USE ONLY) PO ONE (10:00)
[2019-02-20] MEDS: NICOTINE 21 MG/24 HOURS TOPICAL PATCH TD SCH (10:24)
[2019-02-20] MEDS: PRENATAL VITAMINS W/ FOLIC ACID TABLET (FP) PO SCH (10:24)
[2019-02-20] MEDS: clonazePAM 0.5 MG TABLET PO PRN ×3 (10:27→21:46)
--- NOTE | 2019-02-20 14:00 | PN ---
S COWS - Scale Resting Pulse: 0= [place] 80 or Below Sweatin= No chills or Flushing Restless Observation: 1= Difficult to Sit Still Pupil Size: 1= Pupils >than Normal Bone or Joint Aches: 1= Mild Discomfort Runny Nose/ Eye Tearin= Nasal Congestion GI Upset > 30mins: 1= Stomach Cramp Tremor Observation of Outstretched Hands: 1= Tremor [place], Not Seen Yawning Observation: 1= 1-2x During Session Anxiety or Irritability: 2=Irritable/Anxious Goose Flesh Skin: 0=Smooth Skin COWS Score: 9 S Progress Note (SOAP) Subjective: alert,irritable,anxious,pain in the body and back Objective: 02/20/19 13:59 Vital Signs Temperature 97.2 F L 02/20/19 13:36 Pulse Rate 70 02/20/19 13:36 Respiratory Rate 18 02/20/19 13:36 Blood Pressure 102/67 02/20/19 13:36 O2 Sat by Pulse Oximetry (%) 02/20/19 13:59 Laboratory Last Values WBC 9.1 K/mm3 (4.0-10.0) 02/19/19 08:00 RBC 4.31 M/mm3 (4.00-5.60) 02/19/19 08:00 Hgb 12.4 GM/dL (11.7-16.9) 02/19/19 08:00 Hct 37.7 % (35.4-49) 02/19/19 08:00 MCV 87.6 fl (80-96) 02/19/19 08:00 MCH 28.8 pg (25.7-33.7) 02/19/19 08:00 MCHC 32.9 g/dl (32.0-35.9) 02/19/19 08:00 RDW 16.1 % (11.9-15.9) H 02/19/19 08:00 Plt Count 274 K/MM3 (134-434) 02/19/19 08:00 MPV 8.7 fl (7.5-11.1) 02/19/19 08:00 Sodium 137 mmol/L (136-145) 02/19/19 08:00 Potassium 4.0 mmol/L (3.5-5.1) 02/19/19 08:00 Chloride 100 mmol/L (98-107) 02/19/19 08:00 Carbon Dioxide 32 mmol/L (21-32) 02/19/19 08:00 Anion Gap 5 MMOL/L (8-16) L 02/19/19 08:00 BUN 25.6 mg/dL (7-18) H 02/19/19 08:00 Creatinine 0.8 mg/dL (0.55-1.3) 02/19/19 08:00 Est GFR (CKD-EPI)AfAm 133.20 02/19/19 08:00 Est GFR (CKD-EPI)NonAf 114.93 02/19/19 08:00 Random Glucose 84 mg/dL (74-106) 02/19/19 08:00 Calcium 8.4 mg/dL (8.5-10.1) L 02/19/19 08:00 Total Bilirubin 0.4 mg/dL (0.2-1) 02/19/19 08:00 AST 45 U/L (15-37) H 02/19/19 08:00 ALT 72 U/L (13-61) H 02/19/19 08:00 Alkaline Phosphatase 94 U/L (45-117) 02/19/19 08:00 Total Protein 6.8 g/dl (6.4-8.2) 02/19/19 08:00 Albumin 3.1 g/dl (3.4-5.0) L 02/19/19 08:00 RPR Titer Nonreactive (NONREACTIVE) 02/19/19 08:00 Assessment: 02/20/19 13:59 withdrawal symptom Plan: continue detox,methadone regimen
[2019-02-20] MEDS: traZODone HCL 50 MG TABLET (FP) PO SCH (21:46)
[2019-02-20] MEDS: THIAMINE HCL 100 MG TABLET (FP) PO SCH (21:46)
[2019-02-21] MEDS ORDERED: METHADONE HCL 5 MG TABLET (FOR DETOX USE ONLY) ONE (09:46)
[2019-02-21] MEDS ORDERED: METHADONE HCL 10 MG TABLET (FOR DETOX USE ONLY) ONE (09:46)
[2019-02-21] MEDS ORDERED: METHADONE (DETOX) 10 MG, METHADONE (DETOX) 5 MG PO ONE (10:00)
[2019-02-21] MEDS: PRENATAL VITAMINS W/ FOLIC ACID TABLET (FP) PO SCH (11:05)
[2019-02-21] MEDS: clonazePAM 0.5 MG TABLET PO PRN ×3 (11:06→22:00)
[2019-02-21] MEDS: NICOTINE 21 MG/24 HOURS TOPICAL PATCH TD SCH (11:08)
--- NOTE | 2019-02-21 11:38 | PN ---
S COWS - Scale Resting Pulse: 0= [place] 80 or Below Sweatin= Beads of Sweat on Face Restless Observation: 1= Difficult to Sit Still Pupil Size: 0= Normal to Room Light Bone or Joint Aches: 2= Severe Diffuse Aches Runny Nose/ Eye Tearin= None GI Upset > 30mins: 0= None Tremor Observation of Outstretched Hands: 0= None Yawning Observation: 1= 1-2x During Session Anxiety or Irritability: 2=Irritable/Anxious Goose Flesh Skin: 0=Smooth Skin COWS Score: 9 S Progress Note (SOAP) Subjective: c/o sweats, headache, muscle aches, anxiety, and tiredness. Objective: 02/21/19 11:37 Vital Signs 02/21/19 02/21/19 06:35 09:17 Temperature 97.5 F L 96.7 F L Pulse Rate 58 L 67 Respiratory 16 18 Rate Blood Pressure 100/60 108/76 Laboratory Last Values WBC 9.1 K/mm3 (4.0-10.0) 02/19/19 08:00 RBC 4.31 M/mm3 (4.00-5.60) 02/19/19 08:00 Hgb 12.4 GM/dL (11.7-16.9) 02/19/19 08:00 Hct 37.7 % (35.4-49) 02/19/19 08:00 MCV 87.6 fl (80-96) 02/19/19 08:00 MCH 28.8 pg (25.7-33.7) 02/19/19 08:00 MCHC 32.9 g/dl (32.0-35.9) 02/19/19 08:00 RDW 16.1 % (11.9-15.9) H 02/19/19 08:00 Plt Count 274 K/MM3 (134-434) 02/19/19 08:00 MPV 8.7 fl (7.5-11.1) 02/19/19 08:00 Sodium 137 mmol/L (136-145) 02/19/19 08:00 Potassium 4.0 mmol/L (3.5-5.1) 02/19/19 08:00 Chloride 100 mmol/L (98-107) 02/19/19 08:00 Carbon Dioxide 32 mmol/L (21-32) 02/19/19 08:00 Anion Gap 5 MMOL/L (8-16) L 02/19/19 08:00 BUN 25.6 mg/dL (7-18) H 02/19/19 08:00 Creatinine 0.8 mg/dL (0.55-1.3) 02/19/19 08:00 Est GFR (CKD-EPI)AfAm 133.20 02/19/19 08:00 Est GFR (CKD-EPI)NonAf 114.93 02/19/19 08:00 Random Glucose 84 mg/dL (74-106) 02/19/19 08:00 Calcium 8.4 mg/dL (8.5-10.1) L 02/19/19 08:00 Total Bilirubin 0.4 mg/dL (0.2-1) 02/19/19 08:00 AST 45 U/L (15-37) H 02/19/19 08:00 ALT 72 U/L (13-61) H 02/19/19 08:00 Alkaline Phosphatase 94 U/L (45-117) 02/19/19 08:00 Total Protein 6.8 g/dl (6.4-8.2) 02/19/19 08:00 Albumin 3.1 g/dl (3.4-5.0) L 02/19/19 08:00 RPR Titer Nonreactive (NONREACTIVE) 02/19/19 08:00 Labs noted. Assessment: 02/21/19 11:38 AOX3, in no acute respiratory distress. Full ROM, ambulating in the unit. Withdrawal symptoms. Plan: continue detox.
[2019-02-21] MEDS: METHOCARBAMOL 500 MG TABLET PO PRN (15:41)
[2019-02-21] MEDS: hydrOXYzine PAMOATE 25 MG CAPSULE (FP) PO PRN ×2 (17:14→21:59)
[2019-02-21] MEDS: traZODone HCL 50 MG TABLET (FP) PO SCH (21:59)
[2019-02-21] MEDS: THIAMINE HCL 100 MG TABLET (FP) PO SCH (21:59)
[2019-02-21] MEDS: MELATONIN 5 MG TABLETS PO PRN (22:01)
[2019-02-22] MEDS ORDERED: METHADONE HCL 10 MG TABLET (FOR DETOX USE ONLY) PO ONE (10:00)
[2019-02-22] MEDS: PRENATAL VITAMINS W/ FOLIC ACID TABLET (FP) PO SCH (10:32)
[2019-02-22] MEDS: NICOTINE 21 MG/24 HOURS TOPICAL PATCH TD SCH (10:32)
[2019-02-22] MEDS: METHOCARBAMOL 500 MG TABLET PO PRN (10:34)
[2019-02-22] MEDS: clonazePAM 0.5 MG TABLET PO PRN ×3 (10:34→21:54)
--- NOTE | 2019-02-22 13:20 | PN ---
[facility] COWS - Scale Resting Pulse: 0= [place] 80 or Below Sweatin= Chills/Flushing Restless Observation: 0= Sits Still Pupil Size: 0= Normal to Room Light Bone or Joint Aches: 1= Mild Discomfort Runny Nose/ Eye Tearin= Nasal Congestion GI Upset > 30mins: 0= None Tremor Observation of Outstretched Hands: 1= Tremor [place], Not Seen Yawning Observation: 0= None Anxiety or Irritability: 1=Feels Anxious/Irritable Goose Flesh Skin: 0=Smooth Skin COWS Score: 5 [facility]HS Progress Note (SOAP) Subjective: 38 yeas old male admitted on 02/18/19 for opiate withdrawal sx management treated with methadone detox regimen feeling better less tremor mild body aches Objective: 02/22/19 13:19 Vital Signs Temperature 96 F L 02/22/19 09:30 Pulse Rate 70 02/22/19 09:30 Respiratory Rate 18 02/22/19 09:30 Blood Pressure 103/69 02/22/19 09:30 O2 Sat by Pulse Oximetry (%) Laboratory Last Values WBC 9.1 K/mm3 (4.0-10.0) 02/19/19 08:00 RBC 4.31 M/mm3 (4.00-5.60) 02/19/19 08:00 Hgb 12.4 GM/dL (11.7-16.9) 02/19/19 08:00 Hct 37.7 % (35.4-49) 02/19/19 08:00 MCV 87.6 fl (80-96) 02/19/19 08:00 MCH 28.8 pg (25.7-33.7) 02/19/19 08:00 MCHC 32.9 g/dl (32.0-35.9) 02/19/19 08:00 RDW 16.1 % (11.9-15.9) H 02/19/19 08:00 Plt Count 274 K/MM3 (134-434) 02/19/19 08:00 MPV 8.7 fl (7.5-11.1) 02/19/19 08:00 Sodium 137 mmol/L (136-145) 02/19/19 08:00 Potassium 4.0 mmol/L (3.5-5.1) 02/19/19 08:00 Chloride 100 mmol/L (98-107) 02/19/19 08:00 Carbon Dioxide 32 mmol/L (21-32) 02/19/19 08:00 Anion Gap 5 MMOL/L (8-16) L 02/19/19 08:00 BUN 25.6 mg/dL (7-18) H 02/19/19 08:00 Creatinine 0.8 mg/dL (0.55-1.3) 02/19/19 08:00 Est GFR (CKD-EPI)AfAm 133.20 02/19/19 08:00 Est GFR (CKD-EPI)NonAf 114.93 02/19/19 08:00 Random Glucose 84 mg/dL (74-106) 02/19/19 08:00 Calcium 8.4 mg/dL (8.5-10.1) L 02/19/19 08:00 Total Bilirubin 0.4 mg/dL (0.2-1) 02/19/19 08:00 AST 45 U/L (15-37) H 02/19/19 08:00 ALT 72 U/L (13-61) H 02/19/19 08:00 Alkaline Phosphatase 94 U/L (45-117) 02/19/19 08:00 Total Protein 6.8 g/dl (6.4-8.2) 02/19/19 08:00 Albumin 3.1 g/dl (3.4-5.0) L 02/19/19 08:00 RPR Titer Nonreactive (NONREACTIVE) 02/19/19 08:00 lab noted Assessment: 02/22/19 13:20 opiate withdrawal sx discuss medication assisted treatment program Plan: continue methadone detox regimen
[2019-02-22] MEDS: THIAMINE HCL 100 MG TABLET (FP) PO SCH (21:54)
[2019-02-22] MEDS: traZODone HCL 50 MG TABLET (FP) PO SCH (21:54)
[2019-02-22] MEDS: MELATONIN 5 MG TABLETS PO PRN (21:55)
[2019-02-23] MEDS: clonazePAM 0.5 MG TABLET PO PRN ×3 (05:58→20:14)
[2019-02-23] MEDS ORDERED: METHADONE HCL 5 MG TABLET (FOR DETOX USE ONLY) PO ONE (06:00)
[2019-02-23] MEDS: PRENATAL VITAMINS W/ FOLIC ACID TABLET (FP) PO SCH (10:24)
[2019-02-23] MEDS: NICOTINE 21 MG/24 HOURS TOPICAL PATCH TD SCH (10:25)
--- NOTE | 2019-02-23 11:06 | PN ---
[facility] COWS - Scale Resting Pulse: 0= [place] 80 or Below Sweatin= Chills/Flushing Restless Observation: 0= Sits Still Pupil Size: 0= Normal to Room Light Bone or Joint Aches: 1= Mild Discomfort Runny Nose/ Eye Tearin= None GI Upset > 30mins: 0= None Tremor Observation of Outstretched Hands: 0= None Yawning Observation: 0= None Anxiety or Irritability: 1=Feels Anxious/Irritable Goose Flesh Skin: 0=Smooth Skin COWS Score: 3 BHS Progress Note (SOAP) Subjective: 38 years old male admitted on 02/18/19 for opiate withdrawal sx management treated with methadone detox regimen patient determines to stay away from opiate addiction patient wants to go to methadone maintenance program that he was in the methadone program but lorenzo off and relapse patient had bad experience with suboxone that "I am allergic to suboxone" patient prefers returning to methadone program and helping him stay off opioid addiction case discuss with counselor that [facility] agree to begin methadone titration Objective: 02/23/19 11:10 Vital Signs Temperature 97.2 F L 02/23/19 09:18 Pulse Rate 66 02/23/19 09:18 Respiratory Rate 16 02/23/19 09:18 Blood Pressure 90/59 L 02/23/19 09:18 O2 Sat by Pulse Oximetry (%) Laboratory Last Values WBC 9.1 K/mm3 (4.0-10.0) 02/19/19 08:00 RBC 4.31 M/mm3 (4.00-5.60) 02/19/19 08:00 Hgb 12.4 GM/dL (11.7-16.9) 02/19/19 08:00 Hct 37.7 % (35.4-49) 02/19/19 08:00 MCV 87.6 fl (80-96) 02/19/19 08:00 MCH 28.8 pg (25.7-33.7) 02/19/19 08:00 MCHC 32.9 g/dl (32.0-35.9) 02/19/19 08:00 RDW 16.1 % (11.9-15.9) H 02/19/19 08:00 Plt Count 274 K/MM3 (134-434) 02/19/19 08:00 MPV 8.7 fl (7.5-11.1) 02/19/19 08:00 Sodium 137 mmol/L (136-145) 02/19/19 08:00 Potassium 4.0 mmol/L (3.5-5.1) 02/19/19 08:00 Chloride 100 mmol/L (98-107) 02/19/19 08:00 Carbon Dioxide 32 mmol/L (21-32) 02/19/19 08:00 Anion Gap 5 MMOL/L (8-16) L 02/19/19 08:00 BUN 25.6 mg/dL (7-18) H 02/19/19 08:00 Creatinine 0.8 mg/dL (0.55-1.3) 02/19/19 08:00 Est GFR (CKD-EPI)AfAm 133.20 02/19/19 08:00 Est GFR (CKD-EPI)NonAf 114.93 02/19/19 08:00 Random Glucose 84 mg/dL (74-106) 02/19/19 08:00 Calcium 8.4 mg/dL (8.5-10.1) L 02/19/19 08:00 Total Bilirubin 0.4 mg/dL (0.2-1) 02/19/19 08:00 AST 45 U/L (15-37) H 02/19/19 08:00 ALT 72 U/L (13-61) H 02/19/19 08:00 Alkaline Phosphatase 94 U/L (45-117) 02/19/19 08:00 Total Protein 6.8 g/dl (6.4-8.2) 02/19/19 08:00 Albumin 3.1 g/dl (3.4-5.0) L 02/19/19 08:00 RPR Titer Nonreactive (NONREACTIVE) 02/19/19 08:00 lab noted Assessment: 02/23/19 11:10 opiate withdrawal sx Plan: continue methadone detox regimen on going safe discharge planning process
[2019-02-23] MEDS: METHOCARBAMOL 500 MG TABLET PO PRN ×2 (13:53→20:14)
[2019-02-23] MEDS: hydrOXYzine PAMOATE 25 MG CAPSULE (FP) PO PRN (17:42)
[2019-02-23] MEDS: THIAMINE HCL 100 MG TABLET (FP) PO SCH (22:20)
[2019-02-23] MEDS: MELATONIN 5 MG TABLETS PO PRN (22:22)
[2019-02-24] MEDS ORDERED: METHADONE HCL 5 MG TABLET (FOR DETOX USE ONLY) PO ONE (05:00)
[2019-02-24 09:36] VITALS: BP 113/74; PULSE 82; TEMP 96.4
[2019-02-24 11:55] LABS: URINE APPEARANCE CLEAR; URINE BILIRUBIN NEGATIVE (NEGATIVE); URINE COLOR YELLOW; URINE GLUCOSE (UA) NEGATIVE (NEGATIVE); URINE KETONE NEGATIVE (NEGATIVE); URINE LEUK ESTERASE NEGATIVE (NEGATIVE); URINE NITRITE NEGATIVE (NEGATIVE); URINE PROTEIN NEGATIVE (NEGATIVE); URINE UROBILINOGEN 0.2 mg/dL (0.2-1.0)
--- NOTE | 2019-02-24 12:44 | DS ---
[facility] Detox Discharge Summary Admission Date: 02/18/19 Discharge Date: 02/24/19 - History Present History: Opioid Dependence Additional Comments: 38 years old male admitted on 02/18/19 for opiate withdrawal sx management treated with methadone detox regimen patient is alert oriented s 3 cardiac s1s2 regular rate rhythm respiratory clear lung bilaterally on auscultation extremities full range of motion - Physical Exam Results Vital Signs: Vital Signs Temperature 96.4 F L 02/24/19 09:35 Pulse Rate 82 02/24/19 09:35 Respiratory Rate 18 02/24/19 09:35 Blood Pressure 113/74 02/24/19 09:35 O2 Sat by Pulse Oximetry (%) Pertinent Admission Physical Exam Findings: opiate withdrawal sx Laboratory Last Values WBC 9.1 K/mm3 (4.0-10.0) 02/19/19 08:00 RBC 4.31 M/mm3 (4.00-5.60) 02/19/19 08:00 Hgb 12.4 GM/dL (11.7-16.9) 02/19/19 08:00 Hct 37.7 % (35.4-49) 02/19/19 08:00 MCV 87.6 fl (80-96) 02/19/19 08:00 MCH 28.8 pg (25.7-33.7) 02/19/19 08:00 MCHC 32.9 g/dl (32.0-35.9) 02/19/19 08:00 RDW 16.1 % (11.9-15.9) H 02/19/19 08:00 Plt Count 274 K/MM3 (134-434) 02/19/19 08:00 MPV 8.7 fl (7.5-11.1) 02/19/19 08:00 Sodium 137 mmol/L (136-145) 02/19/19 08:00 Potassium 4.0 mmol/L (3.5-5.1) 02/19/19 08:00 Chloride 100 mmol/L (98-107) 02/19/19 08:00 Carbon Dioxide 32 mmol/L (21-32) 02/19/19 08:00 Anion Gap 5 MMOL/L (8-16) L 02/19/19 08:00 BUN 25.6 mg/dL (7-18) H 02/19/19 08:00 Creatinine 0.8 mg/dL (0.55-1.3) 02/19/19 08:00 Est GFR (CKD-EPI)AfAm 133.20 02/19/19 08:00 Est GFR (CKD-EPI)NonAf 114.93 02/19/19 08:00 Random Glucose 84 mg/dL (74-106) 02/19/19 08:00 Calcium 8.4 mg/dL (8.5-10.1) L 02/19/19 08:00 Total Bilirubin 0.4 mg/dL (0.2-1) 02/19/19 08:00 AST 45 U/L (15-37) H 02/19/19 08:00 ALT 72 U/L (13-61) H 02/19/19 08:00 Alkaline Phosphatase 94 U/L (45-117) 02/19/19 08:00 Total Protein 6.8 g/dl (6.4-8.2) 02/19/19 08:00 Albumin 3.1 g/dl (3.4-5.0) L 02/19/19 08:00 Urine Color Yellow 02/24/19 10:20 Urine Appearance Clear 02/24/19 10:20 Urine pH 6.0 (5.0-8.0) 02/24/19 10:20 Ur Specific [place] 1.018 (1.010-1.035) 02/24/19 10:20 Urine Protein Negative (NEGATIVE) 02/24/19 10:20 Urine Glucose (UA) Negative (NEGATIVE) 02/24/19 10:20 Urine Ketones Negative (NEGATIVE) 02/24/19 10:20 Urine Blood Negative (NEGATIVE) 02/24/19 10:20 Urine Nitrite Negative (NEGATIVE) 02/24/19 10:20 Urine Bilirubin Negative (NEGATIVE) 02/24/19 10:20 Urine Urobilinogen 0.2 mg/dL (0.2-1.0) 02/24/19 10:20 Ur Leukocyte Esterase Negative (NEGATIVE) 02/24/19 10:20 RPR Titer Nonreactive (NONREACTIVE) 02/19/19 08:00 lab noted - Treatment Hospital Course: Detox Protocol Followed, Detoxed Safely, Responded well, Discharged Condition Good, Rehab Referral Accepted Patient has Accepted a Rehab Referral to: basic [facility] - Medication Discharge Medications: Ambulatory Orders Lansoprazole [Prevacid] 30 mg PO DAILY 09/15/13 traZODone HCL [Desyrel -] 100 mg PO HS 02/18/19 Naloxone HCl [Narcan] 4 mg NS ASDIR PRN #1 spray 02/19/19 - Diagnosis (1) Opioid dependence, uncomplicated Status: Acute (2) Drug-induced mood disorder Status: Suspected (3) Gastroesophageal reflux disease Status: Chronic (4) Hepatitis C Status: Chronic Qualifiers: Viral hepatitis chronicity: unspecified Hepatic coma status: without hepatic coma Qualified Code(s): B19.20 - Unspecified viral hepatitis C without hepatic coma (5) Nicotine dependence Status: Acute (6) Weight decreased Status: Acute - AMA Did Patient Leave Against Medical Advice: No COWS (PN) - Opiate Withdrawal Resting Pulse: 1= [place] 81-100 Sweatin= No chills or Flushing Restless Observation: 0= Sits Still Pupil Size: 0= Normal to Room Light Bone or Joint Aches: 0= None Runny Nose/ Eye Tearin= None GI Upset > 30mins: 0= None Tremor Observation of Outstretched Hands: 0= None Yawning Observation: 0= None Anxiety or Irritability: 1=Feels Anxious/Irritable Goose Flesh Skin: 0=Smooth Skin COWS Score: 2
== END 2019-02-24 10:00 | disposition home or self-care (01) | DRG 773 ==
LOC: YASAS 13:04 → Y3N 15:46
PROVIDERS: ADMIT Allergy & Immunology; ATTEND Allergy & Immunology
PROC: HZ2ZZZZ Detoxification Services for Substance Abuse Treatment (ICD-10-PCS; principal; 2019-02-18)
DX: F11.23 Opioid dependence with withdrawal (principal); F10.20 Alcohol dependence, uncomplicated; F13.20 Sedative, hypnotic or anxiolytic dependence, uncomplicated; F17.210 Nicotine dependence, cigarettes, uncomplicated; F19.24 Other psychoactive substance dependence with psychoactive substance-induced mood disorder; F41.8 Other specified anxiety disorders; F32.9 Major depressive disorder, single episode, unspecified; K21.9 Gastro-esophageal reflux disease without esophagitis; B19.20 Unspecified viral hepatitis C without hepatic coma; R63.4 Abnormal weight loss; Z68.22 Body mass index [BMI] 22.0-22.9, adult; Z91.013 Allergy to seafood; Z59.0 Homelessness
CPT/HCPCS: 36415; 80053; 81003; 85027; 86593

== ENCOUNTER 2019-04-01 01:06 | Inpatient (IN) | payer OTHER ==
--- NOTE | 2019-04-01 01:58 | HP ---
COWS - Scale Resting Pulse: 0= [place] 80 or Below Sweatin=Flushed/Facial Moisture Restless Observation: 3= Extraneous Movement Pupil Size: 0= Normal to Room Light Bone or Joint Aches: 1= Mild Discomfort Runny Nose/ Eye Tearin= Nasal Congestion GI Upset > 30mins: 1= Stomach Cramp Tremor Observation: 4= Gross Tremor/Twitching Yawning Observation: 1= 1-2x During Session Anxiety or Irritability: 1=Feels Anxious/Irritable Goose Flesh Skin: 0=Smooth Skin COWS Score: 14 CIWA Score Nausea/Vomitin-Mild Nausea/No Vomiting Muscle Tremors: 4-Moderate,w/Arms Extend Anxiety: 3 (Increased facial moisture) Agitation: 4-Moderately Restless Paroxysmal Sweats: 3 (Increased facial moisture) Orientation: 0-Oriented Tacttile Disturbances: 0-None Auditory Disturbances: 0-None Visual Disturbances: 0-None Headache: 0-None Present CIWA-Ar Total Score: 15 - Admission Criteria OASAS Guidelines: Admission for Medically Managed Detox: Requires at least one of the followin. CIWA greater than 12 2. Seizures within the past 24 hours 3. Delirium tremens within the past 24 hours 4. Hallucinations within the past 24 hours 5. Acute intervention needed for co occurring medical disorder 6. Acute intervention needed for co occurring psychiatric disorder 7. Severe withdrawal that cannot be handled at a lower level of care (continued vomiting, continued diarrhea, abnormal vital signs) requiring intravenous medication and/or fluids 8. Patient presents the following: CIWA greater than 12 Admission Criteria Met: Admission criteria met Admitting History and Physical - Smoking History Smoking history: Current every day smoker Have you smoked in the past 12 months: Yes Aproximately how many cigarettes per day: 30 - Alcohol/Substance Use Hx Alcohol Use: Yes Admission ROS BHS - HPI Chief Complaint: "Here for detox. I [facility] to get into penitentiary" Allergies/Adverse Reactions: Allergies Allergy/AdvReac Type Severity Reaction Status Date / Time Fish Containing Products Allergy Unknown Hives Verified 04/01/19 03:18 [Fish Product Derivatives] No Known Drug Allergies Allergy Unknown Verified 04/01/19 03:18 History of Present Illness: 38 yo w/ alcohol and opioid withdrawal seeking detox. Last discharged from [facility] 02/24/19. States relapsed a week later. DELBERT: 0.0 UTox: + FEN/MOP/MTD/BZO/GINGER Denies overdoses. Hx: Seizures r/t Xanax and alcohol withdrawal. Abscess (R) arm x 4 days. Was seen at [facility] ED on 03/28/19. Was prescribed clindamycin 150 mg - 2 tabs PO Q6H x 7 days. 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 Alcohol use began at age 13. Currently drinking 3 pints of vodka daily. Opiate use began at age 19. Currently uses 10-15 bags/day. States uses IV. States last used 03/31 about 8 a.m. Methadone - denies being on methadone program or using illicit methadone. Xanax use began at age 36. Currently using 2 sticks/day. Cocaine use began at age 19. Currently smokes. Uses $20 1-2x/wk. PMHx: GERD, Elevated LFT's. 02/19/19: RPR Nonreactive MHHx: Insomnia. Anxiety. Denies depression. Denies thoughts of harming self or others. SHx: Homeless. Unemployed. Denies legal issues. Search Terms: Marcial Hernandez, 1980 Search Date: 04/01/2019 01:52:32 AM The Drug Utilization Report below displays all of the controlled substance prescriptions, if any, that your patient has filled in the last twelve months. The information displayed on this report is compiled from pharmacy submissions to the Department, and accurately reflects the information as submitted by the pharmacies. This report was requested by: Cat Sharif | Reference #: [id number] There are no results for the search terms that you entered. Search Terms: Marcial Hernandez, 1980 Search Date: 04/01/2019 02:03:20 AM States Searched: [place], [place], [place], [place], [place], [place], [place] The Drug Utilization Report below displays the controlled substance prescriptions, if any, that were dispensed in the indicated state(s). The information displayed on this report is compiled from requests submitted to other states' PMPs, and accurately reflects the information as returned by them. Blank costa indicate data not provided by other state. This report was requested by: Cat Sharif | Reference #: [id number] There are no results for the search terms that you entered. Exam Limitations: No Limitations - Ebola screening Have you traveled outside of the country in the last 21 days: No Have you had contact with anyone from an Ebola affected area: No Have you been sick,other than usual withdrawal symptoms: No Do you have a fever: No - Review of Systems Constitutional: Chills, Diaphoresis, Changes in sleep (Difficulty falling and staying asleep.) EENT: reports: Dental Problems (Cavities. Chews and swallows ok) Respiratory: reports: No Symptoms reported Cardiac: reports: No Symptoms Reported GI: reports: Nausea, Indigestion (GERD), Abdominal cramping : reports: No Symptoms Reported Musculoskeletal: reports: Back Pain (r/t withdrawal), Joint Pain (r/t withdrawal ) Integumentary: reports: No Symptoms Reported Neuro: reports: Tremors Endocrine: reports: Increased Thirst Hematology: reports: No Symptoms Reported Psychiatric: reports: Judgement Intact, Orientated x3, Agitated, Anxious Patient History - Patient Medical History Hx Anemia: No Hx Asthma: No Hx Chronic Obstructive Pulmonary Disease (COPD): No Hx Cancer: No Hx Cardiac Disorders: No Hx Congestive Heart Failure: No Hx Hypertension: No Hx Hypercholesterolemia: No Hx Pacemaker: No HX Cerebrovascular Accident: No Hx Seizures: Yes (in the past from withdrawals) Hx Dementia: No Hx Diabetes: No Hx Gastrointestinal Disorders: No Hx Liver Disease: No Hx Genitourinary Disorders: No Hx Sexually Transmitted Disorders: No Hx Renal Disease (ESRD): No Hx Thyroid Disease: No Hx Human Immunodeficiency Virus (HIV): No Hx Hepatitis C: Yes (since 2003) Hx Depression: No Hx Suicide Attempt: No Hx Bipolar Disorder: No Hx Schizophrenia: No - Patient Surgical History Past Surgical History: No Hx Neurologic Surgery: No Hx Cataract Extraction: No Hx Cardiac Surgery: No Hx Lung Surgery: No Hx Breast Surgery: No Hx Breast Biopsy: No Hx Abdominal Surgery: No Hx Appendectomy: No Hx Cholecystectomy: No Hx Genitourinary Surgery: No Hx Section: No Hx Orthopedic Surgery: No Anesthesia Reaction: No - PPD History Previous Implant?: Yes Documented Results: Negative w/proof Implanted On Prior R Admission?: Yes Date: 01/10/19 Results: 0 mm PPD to be Administered?: No - Smoking Cessation Smoking history: Current every day smoker Have you smoked in the past 12 months: Yes Aproximately how many cigarettes per day: 30 Cigars Per Day: 0 Hx Chewing Tobacco Use: No Initiated information on smoking cessation: Yes 'Breaking Loose' booklet given: 04/01/19 - Substance & Tx. History Hx Alcohol Use: Yes Hx Substance Use: Yes Substance Use Type: Alcohol, Cocaine, Heroin, Marijuana, Opiates, Tranquilizers Hx Substance Use Treatment: Yes (detox, rehab, [facility] in 2012; ) - Substances abused Alprazolam (Xanax) Substance route: Oral Frequency: 3-6 times per week Amount used: 2 sticks Age of first use: 28 Date of last use: 01/07/19 Heroin Substance route: Injection Frequency: Daily Amount used: 10-15bags Age of first use: 19 Date of last use: 02/17/19 Alcohol Substance route: Oral Frequency: Daily Amount used: 2 PINTS OF VODKA Age of first use: 13 Date of last use: 02/17/19 Other Other (specify): Fentanyl Substance route: Injection Frequency: Daily Amount used: 10-15 bags Age of first use: 19 Date of last use: 03/31/19 Admission Physical Exam [facility] - Vital Signs Vital Signs: Vital Signs - 24 hr 04/01/19 01:15 Temperature 97.6 F Pulse Rate 73 Respiratory 20 Rate Blood Pressure 122/77 - Physical General Appearance: Yes: Mild Distress, Tremorous, Sweating (Increased facial moisture), Anxious HEENTM: Yes: EOMI, Hearing grossly Normal, Normal ENT Inspection, Normocephalic , Normal Voice, MARÍA (Pupils = 2 mm), Pharynx Normal, Nasal Congestion Respiratory: Yes: Lungs Clear (Puls Ox = 97 %), Normal Breath Sounds, No Respiratory Distress Neck: Yes: No masses,lesions,Nodules, Supple Breast: Yes: Breast Exam Deferred Cardiology: Yes: Regular Rhythm, Regular Rate, S1, S2 Abdominal: Yes: Non Tender, Flat, Soft, Increased Bowel Sounds Genitourinary: Yes: Within Normal Limits Back: Yes: Normal Inspection Extremities: Yes: Normal Capillary Refill (Pulses +) Neurological: Yes: manager helpdesk II-XII NML intact, Fully Oriented, Alert, Motor Strength 5/5, Normal Mood/Affect Integumentary: Yes: Normal Color, Warm, Moist (Increased facial moisture), Rash (Facial rash: Increased erythema w/ dry flaky skin), Track Gomez (Old and new track gomez), Other (Abscess (R) antecubital area) Lymphatic: Yes: Within Normal Limits - Diagnostic (1) Opioid dependence with withdrawal Current Visit: Yes Status: Acute (2) Alcohol dependence with withdrawal, uncomplicated Current Visit: Yes Status: Acute (3) Cocaine dependence, uncomplicated Current Visit: Yes Status: Chronic (4) Sedative, hypnotic or anxiolytic dependence, uncomplicated Current Visit: Yes Status: Acute (5) Abscess Current Visit: Yes Status: Acute Comment: (R) antecubital area (6) IVDU (intravenous drug user) Current Visit: Yes Status: Chronic (7) Nicotine dependence Current Visit: Yes Status: Chronic (8) Weight decreased Current Visit: Yes Status: Chronic (9) Gastroesophageal reflux disease Current Visit: Yes Status: Chronic (10) Rash Current Visit: Yes Status: Chronic Comment: Facial Cleared for Admission S - Detox or Rehab [facility] Level of Care: Medically Managed Detox Regimen/Protocol: Methadone/Librium Claeared for Rehab Admission: No Breathalyzer - Breathalyzer Breathalyzer: 0 Urine Drug Screen - Test Device Lot number: [id number] Expiration date: 09/29/20 - Control Is test valid?: Yes - Results Drug screen NEGATIVE: No Urine drug screen results: GINGER-Cocaine, FEN-Fentanyl, MOP-Opiates, MTD-Methadone , BZO-Benzodiazepines Inpatient Rehab Admission - Rehab Decision to Admit Inpatient rehab admission?: No
[2019-04-01 02:13] VITALS: BMI 21.9
[2019-04-01] MEDS ORDERED: IBUPROFEN 400 MG TABLET (FP) PO PRN (02:38)
[2019-04-01] MEDS ORDERED: chlordiazePOXIDE HCL 10 MG CAPSULE PO PRN (02:38)
[2019-04-01] MEDS ORDERED: METHADONE (DETOX) 10 MG, METHADONE (DETOX) 5 MG PO ONE ×2 (02:38→10:00)
[2019-04-01] MEDS ORDERED: MENTHOL/PHENOL 1 EACH UD MM PRN (02:38)
[2019-04-01] MEDS ORDERED: METHADONE HCL 10 MG TABLET (FOR DETOX USE ONLY) PO ONE (02:38)
[2019-04-01] MEDS ORDERED: BISMUTH SUBSALICYLATE 524 MG/30 ML UD PO PRN (02:38)
[2019-04-01] MEDS ORDERED: MAGNESIUM HYDROX 2400MG/30ML ORAL SUSPENSION 30 ML CUP PO PRN (02:38)
[2019-04-01] MEDS ORDERED: MAGNESIUM CITRATE 300 ML BOTTLE PO PRN (02:38)
[2019-04-01] MEDS ORDERED: MAG HYDROX/AL HYDROX/SIMETH 30 ML UNIT-DOSE CUP PO PRN (02:38)
[2019-04-01] MEDS ORDERED: ACETAMINOPHEN 325 MG TABLET (FP) PO PRN ×2 (02:38)
[2019-04-01] MEDS ORDERED: NICOTINE POLACRILEX 2 MG GUM BUC PRN ×2 (02:38→04:41)
[2019-04-01] MEDS ORDERED: chlordiazePOXIDE HCL 10 MG CAPSULE PO ONE (02:38)
[2019-04-01] MEDS ORDERED: HYDROCORTISONE 1% TOPICAL CREAM 30 GM TUBE TP PRN (03:16)
[2019-04-01] MEDS ORDERED: METHADONE HCL 10 MG TABLET (FOR DETOX USE ONLY) ONE ×2 (03:48→10:01)
[2019-04-01] MEDS ORDERED: METHADONE HCL 5 MG TABLET (FOR DETOX USE ONLY) ONE ×2 (03:48→10:01)
[2019-04-01] MEDS: chlordiazePOXIDE HCL 25 MG CAPSULE PO SCH ×3 (06:20→21:52)
[2019-04-01] MEDS: CLINDAMYCIN HCL 150 MG CAPSULE (FP) PO SCH ×4 (06:53→23:13)
--- NOTE | 2019-04-01 09:12 | CONSULT ---
[facility] Psychiatric Consult - Data Date of interview: 04/01/19 Psychiatric History: Patient was approached at bedside. 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
--- NOTE | 2019-04-01 10:22 | PN ---
S CIWA - CIWA Score Nausea/Vomitin Muscle Tremors: 2 Anxiety: 3 Agitation: 3 Paroxysmal Sweats: No Perspiration Orientation: 0-Oriented Tacttile Disturbances: 1-Very Mild Itch/Numbness Auditory Disturbances: 0-None Visual Disturbances: 0-None Headache: 2-Mild CIWA-Ar Total Score: 13 BHS COWS - Scale Resting Pulse: 0= SD 80 or Below Sweatin= Chills/Flushing Restless Observation: 1= Difficult to Sit Still Pupil Size: 1= Pupils >than Normal Bone or Joint Aches: 1= Mild Discomfort Runny Nose/ Eye Tearin= Runny Nose/Eyes GI Upset > 30mins: 2= Nausea/Diarrhea Tremor Observation of Outstretched Hands: 2= Slight Tremor Visible Yawning Observation: 1= 1-2x During Session Anxiety or Irritability: 2=Irritable/Anxious Goose Flesh Skin: 0=Smooth Skin COWS Score: 13 S Progress Note (SOAP) Subjective: alert,irritable,anxious,interrupted sleep,pain in the body and back Objective: 04/01/19 10:20 Vital Signs Temperature 97.0 F L 04/01/19 09:59 Pulse Rate 67 04/01/19 09:59 Respiratory Rate 20 04/01/19 09:59 Blood Pressure 124/79 04/01/19 09:59 O2 Sat by Pulse Oximetry (%) Assessment: 04/01/19 10:21 lab pending 04/01/19 10:21 withdrawal symptom Plan: continue detox methadone and librium regimen
[2019-04-01 10:30] LABS: HEMATOCRIT 39.4 % (35.4-49); HEMOGLOBIN 12.9 GM/dL (11.7-16.9); MCH 28.8 pg (25.7-33.7); MCHC 32.8 g/dl (32.0-35.9); MEAN CELL VOLUME 87.7 fl (80-96); MEAN PLT VOLUME 8.7 fl (7.5-11.1); PLATELET COUNT 338 K/MM3 (134-434); RBC 4.49 M/mm3 (4.00-5.60); RDW 14.7 % (11.9-15.9); WHITE BLOOD COUNT 7.6 K/mm3 (4.0-10.0)
[2019-04-01] MEDS: PANTOPRAZOLE 40 MG TABLET (FP) PO SCH (10:49)
[2019-04-01] MEDS: NICOTINE 21 MG/24 HOURS TOPICAL PATCH TD SCH (10:49)
[2019-04-01] MEDS: PRENATAL VITAMINS W/ FOLIC ACID TABLET (FP) PO SCH (10:49)
--- NOTE | 2019-04-01 17:45 | EKG ---
Test Reason : Blood Pressure : / mmHG Vent. Rate : 067 BPM Atrial Rate : 067 BPM P-R Int : 174 ms QRS Dur : 104 ms QT Int : 436 ms P-R-T Axes : 070 051 031 degrees QTc Int : 460 ms NORMAL SINUS RHYTHM NORMAL ECG NO PREVIOUS ECGS AVAILABLE BASELINE ARTIFACT Confirmed by GINO MORENO, HELADIO ([id number]) on 04/01/2019 5:45:14 PM Referred By: Confirmed By:HELADIO CHRISTIAN MD
[2019-04-01] MEDS: THIAMINE HCL 100 MG TABLET (FP) PO SCH (22:24)
[2019-04-02] MEDS: chlordiazePOXIDE 5 MG CAPSULE PO SCH ×3 (06:13→22:19)
[2019-04-02] MEDS: CLINDAMYCIN HCL 150 MG CAPSULE (FP) PO SCH ×4 (07:08→23:44)
[2019-04-02] MEDS ORDERED: METHADONE HCL 5 MG TABLET (FOR DETOX USE ONLY) ONE (08:55)
[2019-04-02] MEDS ORDERED: METHADONE HCL 10 MG TABLET (FOR DETOX USE ONLY) ONE (08:56)
[2019-04-02] MEDS ORDERED: METHADONE (DETOX) 20 MG, METHADONE (DETOX) 5 MG PO ONE (10:00)
--- NOTE | 2019-04-02 10:02 | PN ---
S CIWA - CIWA Score Nausea/Vomitin-No Nausea/No Vomiting Muscle Tremors: 2 Anxiety: 3 Agitation: 0-Normal Activity Paroxysmal Sweats: 3 Orientation: 0-Oriented Tacttile Disturbances: 1-Very Mild Itch/Numbness Auditory Disturbances: 0-None Visual Disturbances: 0-None Headache: 2-Mild CIWA-Ar Total Score: 11 BHS COWS - Scale Resting Pulse: 0= [place] 80 or Below Sweatin= Beads of Sweat on Face Restless Observation: 1= Difficult to Sit Still Pupil Size: 0= Normal to Room Light Bone or Joint Aches: 2= Severe Diffuse Aches Runny Nose/ Eye Tearin= None GI Upset > 30mins: 0= None Tremor Observation of Outstretched Hands: 2= Slight Tremor Visible Yawning Observation: 1= 1-2x During Session Anxiety or Irritability: 2=Irritable/Anxious Goose Flesh Skin: 0=Smooth Skin COWS Score: 11 S Progress Note (SOAP) Subjective: c/o sweats, chills, muscle aches, anxiety, irritability, and shakes. Objective: 04/02/19 10:00 Vital Signs 04/02/19 04/02/19 07:16 09:31 Temperature 97.7 F 97.9 F Pulse Rate 55 L 69 Respiratory 18 18 Rate Blood Pressure 97/58 L 107/79 Assessment: 04/02/19 10:00 AOX3, in no acute respiratory distress. Full ROM, ambulating in the unit. Withdrawal symptoms. Plan: continue detox.
[2019-04-02] MEDS: NICOTINE 21 MG/24 HOURS TOPICAL PATCH TD SCH (10:39)
[2019-04-02] MEDS: PANTOPRAZOLE 40 MG TABLET (FP) PO SCH (10:40)
[2019-04-02] MEDS: PRENATAL VITAMINS W/ FOLIC ACID TABLET (FP) PO SCH (10:40)
[2019-04-02] MEDS: THIAMINE HCL 100 MG TABLET (FP) PO SCH (22:19)
[2019-04-02] MEDS: MELATONIN 5 MG TABLETS PO PRN (22:19)
[2019-04-03] MEDS ORDERED: chlordiazePOXIDE HCL 10 MG CAPSULE PO PRN
[2019-04-03 01:18] LABS: URINE APPEARANCE TURBID; URINE BILIRUBIN NEGATIVE (NEGATIVE); URINE COLOR YELLOW; URINE GLUCOSE (UA) NEGATIVE (NEGATIVE); URINE KETONE NEGATIVE (NEGATIVE); URINE LEUK ESTERASE NEGATIVE (NEGATIVE); URINE NITRITE NEGATIVE (NEGATIVE); URINE PROTEIN NEGATIVE (NEGATIVE); URINE UROBILINOGEN 0.2 mg/dL (0.2-1.0)
[2019-04-03] MEDS: CLINDAMYCIN HCL 150 MG CAPSULE (FP) PO SCH ×3 (06:33→18:15)
[2019-04-03] MEDS: chlordiazePOXIDE HCL 10 MG CAPSULE PO SCH ×3 (06:35→22:14)
[2019-04-03] MEDS ORDERED: METHADONE HCL 10 MG TABLET (FOR DETOX USE ONLY) PO ONE (10:00)
--- NOTE | 2019-04-03 10:13 | PN ---
S CIWA - CIWA Score Nausea/Vomitin-Mild Nausea/No Vomiting Muscle Tremors: 2 Anxiety: 1-Mildly Anxious Agitation: 1-Slight > Activity Paroxysmal Sweats: 1-Minimal Palms Moist Orientation: 0-Oriented Tacttile Disturbances: 0-None Auditory Disturbances: 0-None Visual Disturbances: 0-None Headache: 1-Very Mild CIWA-Ar Total Score: 7 BHS COWS - Scale Resting Pulse: 1= [place] 81-100 Sweatin= Chills/Flushing Restless Observation: 0= Sits Still Pupil Size: 0= Normal to Room Light Bone or Joint Aches: 1= Mild Discomfort Runny Nose/ Eye Tearin= Nasal Congestion GI Upset > 30mins: 1= Stomach Cramp Tremor Observation of Outstretched Hands: 1= Tremor [place], Not Seen Yawning Observation: 0= None Anxiety or Irritability: 1=Feels Anxious/Irritable Goose Flesh Skin: 0=Smooth Skin COWS Score: 7 S Progress Note (SOAP) Subjective: Pt states feeling better. No complaints today O: Vital Signs - 24 hr 04/02/19 04/02/19 04/02/19 12:52 17:07 21:50 Temperature 97 F L 98.1 F 98.1 F Pulse Rate 80 55 L 64 Respiratory 18 18 18 Rate Blood Pressure 126/77 105/68 119/70 04/03/19 04/03/19 04/03/19 00:30 03:30 06:00 Temperature 97.7 F Pulse Rate 74 Respiratory 18 16 16 Rate Blood Pressure 97/71 04/03/19 09:32 Temperature 97.9 F Pulse Rate 65 Respiratory 18 Rate Blood Pressure 108/62 Laboratory Tests 04/01/19 04/02/19 07:40 03:53 WBC 7.6 RBC 4.49 Hgb 12.9 Hct 39.4 MCV 87.7 MCH 28.8 MCHC 32.8 RDW 14.7 Plt Count 338 D MPV 8.7 Urine Color Yellow Urine Appearance Turbid Urine pH 6.0 Ur Specific [place] 1.025 Urine Protein Negative Urine Glucose (UA) Negative Urine Ketones Negative Urine Blood Negative Urine Nitrite Negative Urine Bilirubin Negative Urine Urobilinogen 0.2 Ur Leukocyte Esterase Negative a/p: continue alcohol/heroin detox stable VS/labs
[2019-04-03] MEDS: PRENATAL VITAMINS W/ FOLIC ACID TABLET (FP) PO SCH (10:33)
[2019-04-03] MEDS: PANTOPRAZOLE 40 MG TABLET (FP) PO SCH (10:33)
[2019-04-03] MEDS: NICOTINE 21 MG/24 HOURS TOPICAL PATCH TD SCH (10:33)
[2019-04-03] MEDS: THIAMINE HCL 100 MG TABLET (FP) PO SCH (22:14)
[2019-04-03] MEDS: MELATONIN 5 MG TABLETS PO PRN (22:15)
[2019-04-03] MEDS: METHOCARBAMOL 500 MG TABLET PO PRN (22:15)
[2019-04-04] MEDS: CLINDAMYCIN HCL 150 MG CAPSULE (FP) PO SCH ×4 (00:16→17:24)
[2019-04-04] MEDS ORDERED: chlordiazePOXIDE HCL 10 MG CAPSULE PO ONE (05:00)
[2019-04-04] MEDS: METHOCARBAMOL 500 MG TABLET PO PRN ×3 (07:02→22:00)
[2019-04-04] MEDS ORDERED: METHADONE HCL 10 MG TABLET (FOR DETOX USE ONLY) ONE (09:38)
[2019-04-04] MEDS ORDERED: METHADONE HCL 5 MG TABLET (FOR DETOX USE ONLY) ONE (09:38)
[2019-04-04] MEDS ORDERED: METHADONE (DETOX) 10 MG, METHADONE (DETOX) 5 MG PO ONE (10:00)
[2019-04-04] MEDS: PANTOPRAZOLE 40 MG TABLET (FP) PO SCH (10:51)
[2019-04-04] MEDS: NICOTINE 21 MG/24 HOURS TOPICAL PATCH TD SCH (10:51)
[2019-04-04] MEDS: PRENATAL VITAMINS W/ FOLIC ACID TABLET (FP) PO SCH (10:51)
--- NOTE | 2019-04-04 14:10 | PN ---
[facility] CIWA - CIWA Score Nausea/Vomitin-Mild Nausea/No Vomiting Muscle Tremors: 1-None Visible, but [place] Anxiety: 1-Mildly Anxious Agitation: 1-Slight > Activity Paroxysmal Sweats: No Perspiration Orientation: 0-Oriented Tacttile Disturbances: 0-None Auditory Disturbances: 0-None Visual Disturbances: 0-None Headache: 1-Very Mild CIWA-Ar Total Score: 5 S COWS - Scale Resting Pulse: 1= [place] 81-100 Sweatin= No chills or Flushing Restless Observation: 1= Difficult to Sit Still Pupil Size: 0= Normal to Room Light Bone or Joint Aches: 1= Mild Discomfort Runny Nose/ Eye Tearin= Nasal Congestion GI Upset > 30mins: 1= Stomach Cramp Tremor Observation of Outstretched Hands: 1= Tremor [place], Not Seen Yawning Observation: 0= None Anxiety or Irritability: 1=Feels Anxious/Irritable Goose Flesh Skin: 0=Smooth Skin COWS Score: 7 S Progress Note (SOAP) Subjective: Pt completing alcohol and heroin detox- pt states he would like to go to rehab O: Vital Signs - 24 hr 04/03/19 04/03/19 04/04/19 17:26 21:49 00:30 Temperature 99.5 F 99.2 F Pulse Rate 65 72 Respiratory 18 18 18 Rate Blood Pressure 114/77 101/65 04/04/19 04/04/19 04/04/19 03:45 07:36 10:02 Temperature 97.2 F L 97.9 F Pulse Rate 48 L 67 Respiratory 16 16 16 Rate Blood Pressure 105/56 L 116/75 Laboratory Tests 04/01/19 04/02/19 07:40 03:53 WBC 7.6 RBC 4.49 Hgb 12.9 Hct 39.4 MCV 87.7 MCH 28.8 MCHC 32.8 RDW 14.7 Plt Count 338 D MPV 8.7 Urine Color Yellow Urine Appearance Turbid Urine pH 6.0 Ur Specific [place] 1.025 Urine Protein Negative Urine Glucose (UA) Negative Urine Ketones Negative Urine Blood Negative Urine Nitrite Negative Urine Bilirubin Negative Urine Urobilinogen 0.2 Ur Leukocyte Esterase Negative a/p: Detox- opioid and alcohol detox protocols d/c tomorrow- pt would like rehab admission
[2019-04-04] MEDS: MELATONIN 5 MG TABLETS PO PRN (21:59)
[2019-04-04] MEDS: THIAMINE HCL 100 MG TABLET (FP) PO SCH (21:59)
[2019-04-05] MEDS: CLINDAMYCIN HCL 150 MG CAPSULE (FP) PO SCH ×2 (00:23→05:53)
[2019-04-05 09:01] VITALS: BP 108/55; PULSE 60; TEMP 99
[2019-04-05] MEDS: PRENATAL VITAMINS W/ FOLIC ACID TABLET (FP) PO SCH (09:02)
[2019-04-05] MEDS ORDERED: METHADONE HCL 10 MG TABLET (FOR DETOX USE ONLY) PO ONE (10:00)
--- NOTE | 2019-04-05 16:27 | DS ---
[facility] Detox Discharge Summary Admission Date: 04/01/19 Discharge Date: 04/05/19 - History Present History: Alcohol Dependence, Cocaine Dependence, Opioid Dependence, Sedative Dependence Additional Comments: Pt completed detox successfully and discharged safely. Instructed to follow up with PCP within 1-2 weeks. Pertinent Past History: Hepatitis C - Physical Exam Results Vital Signs: Vital Signs Temperature 99 F 04/05/19 09:01 Pulse Rate 60 04/05/19 09:01 Respiratory Rate 17 04/05/19 09:01 Blood Pressure 108/55 L 04/05/19 09:01 O2 Sat by Pulse Oximetry (%) Pertinent Admission Physical Exam Findings: Withdrawal sxs Laboratory Tests 04/01/19 04/02/19 07:40 03:53 WBC 7.6 RBC 4.49 Hgb 12.9 Hct 39.4 MCV 87.7 MCH 28.8 MCHC 32.8 RDW 14.7 Plt Count 338 D MPV 8.7 Urine Color Yellow Urine Appearance Turbid Urine pH 6.0 Ur Specific [place] 1.025 Urine Protein Negative Urine Glucose (UA) Negative Urine Ketones Negative Urine Blood Negative Urine Nitrite Negative Urine Bilirubin Negative Urine Urobilinogen 0.2 Ur Leukocyte Esterase Negative Labs reviewed - Treatment Hospital Course: Detox Protocol Followed, Detoxed Safely, Responded well, Discharged Condition Good - Medication Discharge Medications: Ambulatory Orders Lansoprazole [Prevacid] 30 mg PO DAILY 09/15/13 traZODone HCL [Desyrel -] 100 mg PO HS 02/18/19 Clindamycin [Cleocin -] 300 mg PO Q6HPO #16 capsule 04/04/19 Nicotine Patch [Nicoderm Patch -] 21 mg TD DAILY #30 patch 04/04/19 Vitamins (Sjr) - 1 tab PO DAILY #30 tablet 04/04/19 Thiamine HCl [Vitamin B1 -] 100 mg PO HS #30 tablet 04/04/19 - Diagnosis (1) Withdrawal seizures Status: Acute (2) Alcohol dependence with withdrawal, uncomplicated Status: Acute (3) Insomnia Status: Chronic (4) Opioid dependence with withdrawal Status: Acute (5) Sedative, hypnotic or anxiolytic dependence, uncomplicated Status: Acute (6) Cocaine dependence, uncomplicated Status: Acute (7) Hepatitis C Status: Chronic Qualifiers: Viral hepatitis chronicity: unspecified Hepatic coma status: without hepatic coma Qualified Code(s): B19.20 - Unspecified viral hepatitis C without hepatic coma (8) Nicotine dependence Status: Chronic - AMA Did Patient Leave Against Medical Advice: No (Follow up with PCP within 1-2 weeks)
[2019-04-06] MEDS ORDERED: METHADONE HCL 5 MG TABLET (FOR DETOX USE ONLY) PO ONE (06:00)
== END 2019-04-05 09:35 | disposition home or self-care (01) | DRG 773 ==
LOC: YASAS 01:06 → Y6N 02:45
PROVIDERS: ADMIT Allergy & Immunology; ATTEND Allergy & Immunology
PROC: HZ2ZZZZ Detoxification Services for Substance Abuse Treatment (ICD-10-PCS; principal; 2019-04-01)
DX: F11.23 Opioid dependence with withdrawal (principal); F10.230 Alcohol dependence with withdrawal, uncomplicated; F14.20 Cocaine dependence, uncomplicated; F17.210 Nicotine dependence, cigarettes, uncomplicated; G47.00 Insomnia, unspecified; B19.20 Unspecified viral hepatitis C without hepatic coma; L02.413 Cutaneous abscess of right upper limb; R94.5 Abnormal results of liver function studies; K21.9 Gastro-esophageal reflux disease without esophagitis; Z91.013 Allergy to seafood; Z86.69 Personal history of other diseases of the nervous system and sense organs; Z56.0 Unemployment, unspecified; Z59.0 Homelessness
CPT/HCPCS: 36415; 81003; 85027; 93005; 93010